=== PATIENT | female | born 1950 | race Caucasian/White ===

== ENCOUNTER 2017-06-07 10:55 | Emergency (ER) | payer OTHER ==
[2017-06-07 11:38] LABS: #Basophils 0.1 thou/uL (0.0-0.2); #Eosinphils 0.1 thou/uL (0.0-0.7); #Lymphocytes 0.8 thou/uL (1.20-3.40); #Monocytes 0.6 thou/uL (0.11-0.59); #Neutrophils 3.3 thou/uL (1.40-6.50); %Basophils 1.7 % (0.0-1.0); %Eosinophils 1.4 % (0.0-10.0); %Monocytes 12.5 % (0.0-10.0); Hematocrit 43.6 % (36.0-47.0); Mean Platelet Volume 7.4 fL (7.4-10.4); Red Blood Cell (RBC) Count 4.94 mill/uL (4.20-5.40); White Blood Cell (WBC) Count 4.8 thou/uL (4.8-10.8)
--- NOTE | 2017-06-07 11:51 | CT ---
BRAIN CT WITHOUT IV CONTRAST: History: 66-year-old female with sinus congestion and dizziness with left sided face tingling. FINDINGS: No focal mass or midline shift. No intra or extraaxial hemorrhage. Sinuses and mastoids are clear. IMPRESSION: No acute intracranial process. No mass or bleed. No evidence for an acute infarction. POS: [facility]
[2017-06-07 12:03] LABS: ALT (SGPT) 19 U/L (8-55); AST (SGOT) 19 U/L (5-34); Alkaline Phosphatase 46 U/L (40-150); Anion Gap 13 mmol/L (10-20); BUN (Urea Nitrogen) 15 mg/dL (9.8-20.1); Bilirubin, Total 0.4 mg/dL (0.2-1.2); CK (CPK) 74 U/L (29-168); Calc. Creatinine Clearance 0 mL/min (70-130); Calcium 9.7 mg/dL (7.8-10.44); Carbon Dioxide 26 mmol/L (23-31); Chloride 104 mmol/L (98-107); Estimated GFR-MDRD 87; Globulin 2.9 g/dL (2.4-3.5); Protein, Total 7.1 g/dL (6.0-8.3); Troponin I Less than 0.010 ng/mL (< 0.028)
--- NOTE | 2017-06-07 12:03 | RAD ---
PORTABLE AP CHEST: Date: 06/07/17 HISTORY: Sinus congestion and sudden onset of dizziness. Left-sided face tingling. COMPARISON: 01/11/17. FINDINGS: Cardiac silhouette and pulmonary vasculature are within normal limits. Lungs are clear. There has be en no interval change from prior study. IMPRESSION: No acute cardiopulmonary process. POS: [facility]
[2017-06-07] MEDS ORDERED: Meclizine HCl 25 MG TAB ONE (13:40)
--- NOTE | 2017-06-18 14:18 | EKG ---
Test Reason : DIZZINESS Blood Pressure : / mmHG Vent. Rate : 069 BPM Atrial Rate : 069 BPM P-R Int : 166 ms QRS Dur : 084 ms QT Int : 410 ms P-R-T Axes : 057 033 049 degrees QTc Int : 439 ms Normal sinus rhythm Septal infarct , age undetermined Abnormal ECG Confirmed by TERRI COLON ([id number]), movie editor YOSELIN MOLINA ([id number]) on 06/18/2017 2:18:12 PM Referred By: Confirmed By:TERRI COLON
== END 2017-06-07 14:52 | disposition home or self-care (01) ==
LOC: ERS 10:55
DX: R42 Dizziness and giddiness (principal); E78.5 Hyperlipidemia, unspecified; G43.909 Migraine, unspecified, not intractable, without status migrainosus; I10 Essential (primary) hypertension
CPT/HCPCS: 70450; 71010; 80053; 82553; 84484; 85025; 87081; 87430; 93005; 94760; 96360

== ENCOUNTER 2017-08-03 02:17 | Inpatient (IN) | payer OTHER ==
[2017-08-03] MEDS ORDERED: Metoclopramide HCl 10 MG/2 ML VIAL ONE (02:45)
[2017-08-03 03:04] LABS: Hemoglobin 13.8 g/dL (12.0-16.0); Mean Corpuscular HGB CONC 34.1 g/dL (32.0-36.0); Mean Corpuscular Hemoglobin 31.2 pg (27.0-31.0); Mean Corpuscular Volume 91.6 fl (81.0-99.0); Mean Platelet Volume 6.9 fL (7.4-10.4); Platelet Count 226 thou/uL (130-400); RBC Distribution Width 12.3 % (11.5-14.5); Red Blood Cell (RBC) Count 4.43 mill/uL (4.20-5.40); White Blood Cell (WBC) Count 14.3 thou/uL (4.8-10.8)
[2017-08-03 03:11] LABS: ALT (SGPT) 16 U/L (8-55); AST (SGOT) 20 U/L (5-34); Albumin 3.9 g/dL (3.4-4.8); Alkaline Phosphatase 36 U/L (40-150); Anion Gap 15 mmol/L (10-20); BUN (Urea Nitrogen) 10 mg/dL (9.8-20.1); Bilirubin, Total 0.9 mg/dL (0.2-1.2); Calc. Creatinine Clearance 0 mL/min (70-130); Calcium 9.6 mg/dL (7.8-10.44); Carbon Dioxide 25 mmol/L (23-31); Chloride 101 mmol/L (98-107); Estimated GFR-MDRD 80; Globulin 3.1 g/dL (2.4-3.5); Glucose 119 mg/dL (80-115); Potassium 4.3 mmol/L (3.5-5.1); Sodium 137 mmol/L (136-145)
[2017-08-03 03:20] LABS: Band 4 % (5-11); Eosinophils 3 % (0-10); Lymphocytes 3 % (21-51); MDiff Complete? YES; Monocytes 1 % (0-10); Neutrophil 89 % (42-75)
[2017-08-03] MEDS ORDERED: diphenhydrAMINE 50 MG/ML VIAL ONE (04:15)
[2017-08-03] MEDS ORDERED: Morphine 2 mg/2ml in 0.9% NaCl PF SYRINGE ONE (04:15)
[2017-08-03 05:36] LABS: Bilirubin Small (Negative); Blood, Urine Small (Negative); Clarity CLOUDY (Clear); Glucose, Urine (Dipstick) Negative (Negative); Leukocyte Large (Negative); Nitrite Negative (Negative); Protein, Urine (Dipstick) Trace mg/dL (Neg-Trace); Specific Gravity, Urine 1.021 (1.002-1.036); Urobilinogen 0.2 mg/dL (0.2-1.0)
[2017-08-03 05:39] LABS: Bacteria/HPF 1+ HPF (None Seen)
[2017-08-03 05:46] LABS: Pathc Cast-AUWi Flag 4.74 (0-2.49)
[2017-08-03 05:56] LABS: Hyaline Casts/LPF NONE SEEN LPF (0-3 Hyaline); Manual Microscopic Reviewed? No Path Casts Seen
[2017-08-03] MEDS ORDERED: Acetaminophen 325 MG TAB PO PRN (06:00)
[2017-08-03] MEDS ORDERED: Sodium Chloride 0.9% 100 ML IVPB SCH (06:00)
[2017-08-03] MEDS ORDERED: Ondansetron HCl/PF 4 MG/2 ML Vial IVP PRN (06:00)
[2017-08-03] MEDS ORDERED: Ondansetron ODT 4 MG TAB SL PRN (06:00)
[2017-08-03] MEDS ORDERED: Piperacillin/Tazobactam 4.5 GM in Sodium Chloride 0.9% 100 ML IVPB SCH (06:45)
[2017-08-03] MEDS ORDERED: Methocarbamol 500 MG TAB PO SCH (06:45)
[2017-08-03] MEDS ORDERED: Acetaminophen 500 MG TAB ONE (07:21)
[2017-08-03] MEDS ORDERED: HYDROcodone/Acetaminophen 5/325 mg Tablet PO PRN (12:47)
[2017-08-03] MEDS ORDERED: Ibuprofen 200 MG TAB PO PRN (12:48)
[2017-08-03] MEDS ORDERED: Acetaminophen 500 MG TAB PO PRN (12:48)
[2017-08-03] MEDS: Piperacillin/Tazobactam 3.375 GM in Sodium Chloride 0.9% 100 ML IVPB SCH ×2 (13:37→20:33)
[2017-08-03] MEDS: Sodium Chloride 0.45% 1,000 ML IV SCH (13:41)
[2017-08-03] MEDS ORDERED: FLU VACC QS 2017 (6-35MOS) 0.25 ML SYRINGE IM ONE (13:45)
[2017-08-03] MEDS ORDERED: FLU VACC QS2017-18 36 mo. & older 0.5 ML SYRINGE IM ONE (13:45)
--- NOTE | 2017-08-03 14:58 | HP ---
DATE OF ADMISSION: 08/03/2017 CHIEF COMPLAINT: Fever, chills, back pain. HISTORY OF PRESENT ILLNESS: This is a 66-year-old female patient of Dr. Alfredo Dong who has had multiple oral antibiotics for the last several months for a urinary tract infection, as she just could not seem to completely fix. She has been on multiple rounds of oral antibiotics, the last one was Levaquin. She came in to the ER, because she became febrile of 102, was very nauseated and felt significant pain in the left side of her back, felt like she had slept on a rock this is what carlos a zamudio said. In the ER, they found her urine did have too numerous to count white cells, current culture was pending. The ER doctor went from past urinary culture and found she had multi-resistant E. coli and start her on Zosyn and admitted for IV treatment with outpatient failure. PAST MEDICAL HISTORY: Positive for hypertension, hyperlipidemia, migraines, insomnia. She has a his tory of left knee degenerative joint disease. PAST SURGICAL HISTORY: An appendectomy, tonsillectomy, and adenoidectomy as a child. She had a hyst erectomy. She had a bladder suspension and then in January of this last year in 2016, she had a left kn ee replacement by Dr. Ch. MEDICATIONS: Losartan/HCT 100/12.5 daily, Crestor 10 mg daily, Ambien 10 mg p.r.n. for insomnia, and sumatriptan 100 mg p.r.n. for migraines. ALLERGIES: She is allergic to SULFA, LEVAQUIN causes rash. She started to feel better since she sto pped the Levaquin. FAMILY HISTORY: Both parents are . Father had a CVA and hypertension. Mom had a cancer of some kind and hypertension. Siblings have hypertension. She has 2 sons with no comorbidities. SOCIAL HISTORY: She is , has two sons. 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 She has no toxic habits. REVIEW OF SYSTEMS: She has had fever, slight headache, some sweats and chills. She has had no cough or chest pain. She has had some nausea, but no emesis. She denies any changes or bowel or bladder habits. She has had no diarrhea or constipation. No melena, no hematochezia. She denies any hematu severo, has had some dysuria and some foul smell in urine. Denies any paresis or paraesthesias. No patti cidal or homicidal ideations. No auditory or visual hallucinations. PHYSICAL EXAMINATION: GENERAL: She is alert, awake, slightly uncomfortable in bed. VITAL SIGNS: Temperature 98.6, pulse 74, respiration 16, O2 sat 98% on room air, blood pressure 142/ 78. HEENT: Reveals normocephalic and atraumatic cranium. Pupils are equal, round, reactive to light and accommodation. Extraocular movements are intact. She does wear glasses. NECK: Supple, no JVD, no bruits, no thyromegaly, no lymphadenopathy. LUNGS: Clear to auscultation bilaterally. No rales, rhonchi, or wheezes. HEART: S1, S2, with no rubs, murmurs, or gallops. ABDOMEN: Soft, nontender, nondistended. No hepatosplenomegaly. BACK: She has left-sided costovertebral angle tenderness to palpation. EXTREMITIES: Show good palpable pulses x4. No clubbing, cyanosis, or edema. SKIN: She has a faint, but noticeable global rash, small round macules about dime jose carlos size. NEUROMUSCULAR: She is alert and oriented x4. Cranial nerves II through XII are equal and symmetrica l. There are no motor or sensory deficits appreciated. All DTRs are 2+. LABORATORY DATA AND X-RAY FINDINGS: White count is 14.3, H&H is 13.8 and 40.6 with 226,000 platelets . Neutrophils 89%, bands at 4%, lymphocytes at 3%. Sodium 137, potassium 4.3, chloride 101, bicarbo mojgan 25. BUN 10, creatinine 0.73. Sugar 119. GFR is 80. AST 20, ALT 16. UA shows too numerous to count white blood cell counts with a large leukocyte esterase, only a small amount of blood, ketones are positive at 80. Her current culture is still pending, culture from 06/18/2017 showed a multi-re sistant E. coli sensitive to Zosyn so that is with the ER started on. ASSESSMENT AND PLAN: Pyelonephritis. We will continue the Zosyn until we get the most recent cultur e and sensitivity results. We will continue her on IV fluids.
[2017-08-03] MEDS: HYDROcodone/Acetaminophen 5/325 mg Tablet PO PRN (18:07)
[2017-08-04] MEDS: Piperacillin/Tazobactam 3.375 GM in Sodium Chloride 0.9% 100 ML IVPB SCH ×4 (00:25→20:34)
[2017-08-04] MEDS: Sodium Chloride 0.45% 1,000 ML IV SCH ×2 (00:26→07:03)
[2017-08-04 04:30] LABS: #Eosinphils 0.6 thou/uL (0.0-0.7); #Lymphocytes 0.9 thou/uL (1.20-3.40); #Monocytes 0.5 thou/uL (0.11-0.59); #Neutrophils 6.2 thou/uL (1.40-6.50); %Basophils 0.2 % (0.0-1.0); %Eosinophils 6.9 % (0.0-10.0); %Lymphocytes 11.2 % (21.0-51.0); %Monocytes 5.8 % (0.0-10.0); %Neutrophils 75.9 % (42.0-75.0); Hemoglobin 11.6 g/dL (12.0-16.0); Mean Corpuscular HGB CONC 33.4 g/dL (32.0-36.0); Mean Corpuscular Hemoglobin 30.6 pg (27.0-31.0); Mean Corpuscular Volume 91.6 fl (81.0-99.0); Platelet Count 205 thou/uL (130-400); RBC Distribution Width 12.3 % (11.5-14.5); Red Blood Cell (RBC) Count 3.78 mill/uL (4.20-5.40); White Blood Cell (WBC) Count 8.2 thou/uL (4.8-10.8)
[2017-08-04 04:44] LABS: Anion Gap 10 mmol/L (10-20); BUN (Urea Nitrogen) 9 mg/dL (9.8-20.1); Calc. Creatinine Clearance 100 mL/min (70-130); Calcium 8.6 mg/dL (7.8-10.44); Carbon Dioxide 24 mmol/L (23-31); Chloride 107 mmol/L (98-107); Estimated GFR-MDRD Greater than 90; Glucose 103 mg/dL (80-115); Potassium 3.2 mmol/L (3.5-5.1); Sodium 138 mmol/L (136-145)
--- NOTE | 2017-08-04 07:28 | PRG ---
DATE OF SERVICE: 08/04/2017 TIME: 7:00 a.m. SUBJECTIVE: The patient is feeling much better this morning after IV hydration. Appetite is good. Left flank pain is much improved. OBJECTIVE: VITAL SIGNS: Temperature 98.6, pulse 84, respirations 16, pulse oximetry 94, blood pressure 133/79. HEART: Regular rate and rhythm. LUNGS: Clear. ABDOMEN: Soft. BACK: Mild left CVA tenderness. LABORATORY DATA: White count 8.2 down from 14.3, H&H is 11 and 34, platelet 205. Sodium 138, potass ium 3.2, creatinine 0.62, blood sugar 103. UA showed 11-20 squamous cells, too numerous to count WBC s. Urine culture negative. Prior urine culture positive for multidrug resistant E. coli sensitive t o piperacillin. ASSESSMENT: 1. Left pyelonephritis with fever, improving. 2. Recurrent urinary tract infection. 3. Hypertension. 4. Hyperlipidemia. 5. Migraines. 6. Left knee degenerative joint disease. PLAN: 1. Continue IV hydration and add potassium. 2. Continue IV piperacillin for another 24 hours. 3. Renal ultrasound today. 4. Possible discharge in a.m.
[2017-08-04] MEDS: Losartan Potassium 25 MG TAB PO SCH (08:16)
[2017-08-04] MEDS: Hydrochlorothiazide 25 MG TAB PO SCH (08:16)
[2017-08-04] MEDS: Loratadine 10 MG TAB PO SCH (08:17)
--- NOTE | 2017-08-04 09:11 | ULT ---
BILATERAL RENAL ULTRASOUND: History: Recurrent urinary tract infection and pyelonephritis. Comparison: None. FINDINGS: The right kidney measures 9.9 x 5.8 x 5.5 cm. Left kidney measures 11.4 x 7.2 x 5.7 cm. No hydronephr osis or abnormal calcifications. The pre void urinary bladder volume is 103 ml. IMPRESSION: 1. No evidence of obstructive uropathy. 2. Trace right pleural effusion. POS: [facility]
[2017-08-04] MEDS: 1/2 NS w/KCL 20 mEq 1,000 ML IV SCH ×2 (10:44→17:21)
[2017-08-04 13:57] VITALS: BMI 26.1
[2017-08-04] MEDS ORDERED: diphenhydrAMINE 25 MG CAP PO PRN (14:09)
[2017-08-04] MEDS: HYDROcodone/Acetaminophen 5/325 mg Tablet PO PRN (20:34)
[2017-08-05] MEDS: 1/2 NS w/KCL 20 mEq 1,000 ML IV SCH ×2 (00:39→07:05)
[2017-08-05] MEDS: Piperacillin/Tazobactam 3.375 GM in Sodium Chloride 0.9% 100 ML IVPB SCH ×2 (02:06→09:06)
[2017-08-05 04:32] LABS: #Eosinphils 0.5 thou/uL (0.0-0.7); #Lymphocytes 1.3 thou/uL (1.20-3.40); #Monocytes 0.4 thou/uL (0.11-0.59); #Neutrophils 2.1 thou/uL (1.40-6.50); %Basophils 0.5 % (0.0-1.0); %Eosinophils 12.5 % (0.0-10.0); %Lymphocytes 28.9 % (21.0-51.0); %Neutrophils 49.1 % (42.0-75.0); Hemoglobin 11.2 g/dL (12.0-16.0); Mean Corpuscular Hemoglobin 31.2 pg (27.0-31.0); Mean Corpuscular Volume 91.7 fl (81.0-99.0); Mean Platelet Volume 7.1 fL (7.4-10.4); Platelet Count 227 thou/uL (130-400); RBC Distribution Width 12.4 % (11.5-14.5); Red Blood Cell (RBC) Count 3.59 mill/uL (4.20-5.40); White Blood Cell (WBC) Count 4.4 thou/uL (4.8-10.8)
[2017-08-05 05:01] LABS: Anion Gap 11 mmol/L (10-20); BUN (Urea Nitrogen) 13 mg/dL (9.8-20.1); Calc. Creatinine Clearance 92 mL/min (70-130); Calcium 8.8 mg/dL (7.8-10.44); Carbon Dioxide 25 mmol/L (23-31); Chloride 111 mmol/L (98-107); Estimated GFR-MDRD 89; Glucose 99 mg/dL (80-115); Potassium 3.7 mmol/L (3.5-5.1); Sodium 143 mmol/L (136-145)
[2017-08-05 07:45] VITALS: BP 149/84; TEMP 97.9
--- NOTE | 2017-08-05 08:28 | DIS ---
DATE OF ADMISSION: 08/03/2017 DATE OF DISCHARGE: 08/05/2017 DISCHARGE DIAGNOSES: 1. Escherichia coli, left pyelonephritis with fever. 2. Recurrent urinary tract infection. 3. Hypertension. 4. Hyperlipidemia. 5. Migraine. 6. Arthritis. BRIEF HISTORY: This is a 66-year-old white female with recurrent UTIs on multiple antibiotics, admit ines with fever. She had temperature of 102 and was very nauseated and presented to the emergency keshia m. She also had left-sided back pain which was quite painful. In the ER, she was noted to have TNTC WBCs and was admitted for failed outpatient therapy. HOSPITAL COURSE: The patient was started on Zosyn IV daily. Her fever resolved. She has done very well. Her back pain has resolved. She has been well hydrated with fluids. She will be discharged o n Augmentin 875 b.i.d. for 1 week. A small pleural effusion was noted on an altered renal ultrasound , so a chest x-ray will be done prior to discharge. Her electrolytes; sodium 143, potassium 3.7, cre atinine 0.67, BUN 13. Her white count went from 14-4.11, H&H of 11 and 32, platelets 227. Renal ult rasound was negative.
[2017-08-05] MEDS: Hydrochlorothiazide 25 MG TAB PO SCH (08:56)
[2017-08-05] MEDS: Loratadine 10 MG TAB PO SCH (08:56)
[2017-08-05] MEDS: Losartan Potassium 25 MG TAB PO SCH (08:58)
--- NOTE | 2017-08-05 09:15 | RAD ---
CHEST TWO VIEWS: HISTORY: Pleural effusion. COMPARISON: Chest one-view 06/07/2017. FINDINGS: There are small bilateral layering pleural effusions which are new. Heart size and cardiac silhouett e are similar. No pneumothorax. No osseous abnormality. IMPRESSION: New small bilateral layering pleural effusions and compressive atelectasis. POS: [facility]
== END 2017-08-05 09:11 | disposition home or self-care (01) | DRG 690 ==
LOC: ERS 02:17 → T4-A 06:20
PROVIDERS: ADMIT Family Medicine; ATTEND Family Medicine
DX: N10 Acute pyelonephritis (principal); B96.20 Unspecified Escherichia coli [E. coli] as the cause of diseases classified elsewhere; I10 Essential (primary) hypertension; E78.5 Hyperlipidemia, unspecified; G43.909 Migraine, unspecified, not intractable, without status migrainosus; M19.90 Unspecified osteoarthritis, unspecified site; Z86.73 Personal history of transient ischemic attack (TIA), and cerebral infarction without residual deficits
CPT/HCPCS: 36415; 71020; 76770; 80048; 80053; 81003; 81015; 83605; 85025; 87040; 87086; 96361; 96365; 96375; J1200; J2270; J2543; J2765; J7050

== ENCOUNTER 2017-08-10 09:22 | Outpatient (CLI) | payer OTHER | END 2017-08-10 09:23 | disposition home or self-care (01) | LOC: BICRAD 09:22 | PROVIDERS: ATTEND Family Medicine | DX: J90 Pleural effusion, not elsewhere classified (principal) | CPT/HCPCS: 71046; 81001; 87086 ==

== ENCOUNTER 2018-03-14 15:39 | Outpatient (CLI) | payer OTHER | END 2018-03-14 15:40 | disposition home or self-care (01) | LOC: BICMAMMO 15:39 | PROVIDERS: ATTEND Internal Medicine Hospice and Palliative Medicine | DX: Z12.31 Encounter for screening mammogram for malignant neoplasm of breast (principal) | CPT/HCPCS: 77063; 77067 ==

== ENCOUNTER 2018-03-21 12:25 | Outpatient (CLI) | payer OTHER ==
--- NOTE | 2018-03-21 14:56 | CT ---
NONCONTRAST ENHANCED CT IMAGES ABDOMEN AND PELVIS: History: Abdominal and pelvic pain. Patient has a history of fever. FINDINGS: Images demonstrate numerous descending and sigmoid colonic diverticula. This is compatible with diver ticulosis. Surrounding inflammatory changes is also seen adjacent to the sigmoid colon. There also appears to be areas of focal sigmoid colonic thickening and fat stranding compatible with diverticulitis in additi on to diverticulosis. There does appear to be some fat stranding extending into the left pelvis adjacent and surrounding th e left retroperitoneum. Some of this inflammatory change also surrounds the left ureter. A small amount of free pelvic fluid is also seen. IMPRESSION: 1. Diverticulosis with findings concerning for diverticulitis. 2. Multilevel lumbar intervertebral disc desiccation also seen. Vacuum disc changes seen at the L4-5 intervertebral disc space. POS: [facility]
== END 2018-03-21 12:26 | disposition home or self-care (01) ==
LOC: CT 12:25
PROVIDERS: ATTEND Internal Medicine Hospice and Palliative Medicine
DX: R10.83 Colic (principal); K57.30 Diverticulosis of large intestine without perforation or abscess without bleeding; M51.86 Other intervertebral disc disorders, lumbar region
CPT/HCPCS: 74176

== ENCOUNTER 2019-03-15 09:29 | Outpatient (CLI) | payer OTHER ==
--- NOTE | 2019-03-15 10:05 | MMO ---
Bilateral MAMMO Bilat Screen [facility]AN[facility]. CLINICAL HISTORY: Patient is 68 years old and is seen for screening. The patient has no family history of breast cancer. The patient has no personal history of cancer. VIEWS: The views performed were: bilateral craniocaudal with tomosynthesis and bilateral mediolateral oblique with tomosynthesis. FILMS COMPARED: The present examination has been compared to a prior imaging study performed at [facility] on 03/14/2018. MAMMOGRAM FINDINGS: There are scattered fibroglandular densities. Finding 1: There are stable benign appearing calcifications seen in both breasts. Finding 2: There are stable nodules seen in both breasts. There are no suspicious masses, suspicious calcifications, or new areas of architectural distortion. IMPRESSION: THERE IS NO MAMMOGRAPHIC EVIDENCE OF MALIGNANCY. A ROUTINE FOLLOW-UP MAMMOGRAM IN 1 YEAR IS RECOMMENDED. THE RESULTS OF THIS EXAM WERE SENT TO THE PATIENT. ACR BI-RADS Category 2 - Benign finding MAMMOGRAPHY NOTE: 1. A negative mammogram report should not delay a biopsy if a dominant of clinically suspicious mass is present. 2. Approximately 10% to 15% of breast cancers are not detected by mammography. 3. Adenosis and dense breasts may obscure an underlying neoplasm. Reported by: SHAZIA HU MD Electonically Signed: [id number]
== END 2019-03-15 09:30 | disposition home or self-care (01) ==
LOC: BICMAMMO 09:29
PROVIDERS: ATTEND Internal Medicine Hospice and Palliative Medicine
DX: Z12.31 Encounter for screening mammogram for malignant neoplasm of breast (principal)
CPT/HCPCS: 77063; 77067

== ENCOUNTER 2019-05-01 17:48 | Inpatient (IN) | payer OTHER, MEDICARE ==
[~2019-05-01 17:48] MED LIST: ISOVUE-370 76%-LOCM 1 ML ONE
[2019-05-01 18:05] VITALS: BMI 27.4
[2019-05-01] MEDS ORDERED: Famotidine 20 MG TAB PO PRN (20:31)
[2019-05-01] MEDS ORDERED: Ondansetron ODT 4 MG TAB PO PRN (20:31)
[2019-05-01] MEDS ORDERED: Acetaminophen 325 MG TAB PO PRN (20:31)
[2019-05-01] MEDS ORDERED: Senokot S 8.6-50 MG TAB PO PRN (20:31)
--- NOTE | 2019-05-01 20:44 | PDOC.FPRHP ---
- History of Present Illness Chief Complaint: diverticulitis, failed outpt tx History of Present Illness: Patient is a 68F with PMHx of HTN, HLD, chronic UTI, chronic lower back pain presenting with diverticulitis s/p failing outpatient treatment. Patient reports that approximately 23 days ago she had been started on a 10 day course of Augmentin for diverticulitis, outpatient. She reported that she improved and was off of the antibiotics for about 10 days before pain in her LLQ began this past Tuesday. She reports that the pain worsened on Tuesday and she started to take Augmentin again. She reports that her pain continued to worsen so she was sent here as a direct admit by Dr. Davis. She endorses some nausea at times, but denies emesis or diarrhea. She reports that she has been constipated, with her last BM being this morning, though she reports it was difficult to pass. She also reports that it is painful when she is sitting up right. - Allergies/Adverse Reactions Allergies Allergy/AdvReac Type Severity Reaction Status Date / Time nitrofurantoin Allergy Intermediate Rash Verified 08/03/17 18:46 [From Macrodantin] sulfamethoxazole Allergy Intermediate Rash Verified 05/01/19 20:45 [From Bactrim] trimethoprim [From Bactrim] Allergy Intermediate Rash Verified 05/01/19 20:45 Sulfa (Sulfonamide Allergy Verified 08/03/17 11:41 Antibiotics) - Home Medications Medication Instructions Recorded Confirmed Type Ibuprofen 2 tab PO Q4H PRN 01/11/17 05/01/19 History Losartan/Hydrochlorothiazide 1 tab PO DAILY 01/11/17 05/01/19 History [Losartan-Hctz 100-12.5 mg Tab] Rosuvastatin [Crestor] 1 tab PO DAILY 01/11/17 05/01/19 History SUMAtriptan Succinate 1 tab PO DAILY PRN 01/11/17 05/01/19 History diphenhydrAMINE [Benadryl] 1 tab PO Q6H PRN 01/11/17 05/01/19 History traMADol HCl [Ultram] 1 - 2 tablet PO Q6HR PRN 01/20/17 05/01/19 History Amoxicillin/Potassium Clav 1 each PO BID #14 tablet 08/05/17 05/01/19 Rx [Augmentin 875-125 Tablet] Zolpidem Tartrate [Ambien] 1 tab PO HS PRN 05/01/19 05/01/19 History - History PMHx: HTN, HLD, chronic UTI, chronic lower back pain PSHx: partial hysterectomy, tonsillectomy, appendectomy FHx: mother- bladder cancer Social: denies etoh, drugs, smoking - Vital signs BP: [145/91] HR: [77] RR: [18] Tmax: [99.6] Pox: [98]% on [RA] Wt: [72.5kg] - Physical Exam Constitutional: NAD, awake, alert and oriented HEENT: EOMI, no scleral icterus, grossly normal vision Neck: supple, trachea midline Chest: no-tender to palpation, no lesions Heart: RRR, normal S1/S2 Lungs: CTAB, no respiratory distress, good air movement Abdomen: bowel sounds present, other (ttp lower abdomen, some guarding, rebound tenderness llq) Musculoskeletal: normal structure, normal tone Neurological: no focal deficit, normal sensation Skin: no rash/lesions, good turgor Heme/Lymphatic: no unusual bruising or bleeding, no purpura Psychiatric: normal mood and affect, good judgment and insight FMR H&P: Results - Labs Result Diagrams: 05/01/19 20:51 05/01/19 20:51 FMR H&P: A/P - Problem List (1) Diverticulitis Current Visit: Yes Status: Acute Code(s): K57.92 - DVTRCLI OF INTEST, PART UNSP, W/O PERF OR ABSCESS W/O BLEED (2) HTN (hypertension) Current Visit: Yes Status: Chronic Code(s): I10 - ESSENTIAL (PRIMARY) HYPERTENSION (3) HLD (hyperlipidemia) Current Visit: Yes Status: Chronic Code(s): E78.5 - HYPERLIPIDEMIA, UNSPECIFIED - Plan Patient is a 68F with PMHx of HTN, HLD, low back pain, chronic UTI, admitted for diverticulitis that failed outpatient tx #Diverticulitis, failed outpatient tx -patient currently afebrile -NPO for bowel rest -IVF -Abdominal CT to assess for abscess -Flagyl + Cipro, will continue to reassess and adjust accordingly #HTN -continue home meds: HCTZ/lostartan #HLD -continue home meds: crestor DVT ppx: SCDs Diet: NPO Code: Full Dispo: Inpatient for IV abx tx of diverticulitis, f/u abdominal CT FMR H&P: Upper Level - Pertinent history 68 yo F here as direct admit from clinic for failed outpatient tx of diverticulitis. She was initially treated at the beginning of April with augmentin for 10 days. Over the past 2-3 days she noted return of LLQ pain that gradually worsened and had associated nausea. She denies constipation, diarrhea , or blood in stool. See international trade manager portion of note for full ROS, PE, vitals, and labs - Pertinent findings ROS General: denies fever, chills CV: denies CP Resp: denies SOB Abd: complains of LLQ and RLQ pain. Denies diarrhea or blood stool : denies frequency or dysuria PE: General A&O x4, NAD HEENT NCAT CV RRR no murmur Resp CTA b/l Abd Suprapubic and LLQ TTP worse on rebound - Plan Date/Time: 05/01/192038 I, Nick Maddox DO, have evaluated this patient and agree with findings/plan as outlined by international trade manager resident. Pertinent changes/additions are listed here. 1. Acute diverticulitis - start IV cipro/flagyl - IVF - Clear liquid diet, advance as tolerated - CT abd/pelv w/wo contrast to r/o abscess - IV pain control 2. HLD - home meds 3. HTN - home meds PPx SCD Diet clear liquid Code Full Dispo: pt is overall stable and has good prognosis. Would expect hospital stay of greater than 48 hours. Addendum - Attending - Attending Attestation Date/Time: 05/02/19 [id number] I personally evaluated the patient and discussed the management with Dr. Maddox and Jared. I agree with the History, Examination, Assessment and Plan documented above with any addition or exceptions noted below. Patient with localized guarding and TTP in LLQ, soft and NTTP otherwise. Cipro/ flagyl and await imaging. NPO pending results.
[2019-05-01] MEDS ORDERED: SUMAtriptan Succinate 50 MG TAB PO PRN (20:46)
[2019-05-01 21:05] LABS: #Eosinphils 0.2 thou/uL (0.0-0.7); #Lymphocytes 1.5 thou/uL (1.20-3.40); #Monocytes 0.8 thou/uL (0.11-0.59); #Neutrophils 5.8 thou/uL (1.40-6.50); %Basophils 0.2 % (0.0-1.0); %Eosinophils 1.9 % (0.0-10.0); %Monocytes 9.6 % (0.0-10.0); %Neutrophils 70.4 % (42.0-75.0); Hemoglobin 13.4 g/dL (12.0-16.0); Mean Corpuscular HGB CONC 34.7 g/dL (32.0-36.0); Mean Corpuscular Hemoglobin 30.6 pg (27.0-31.0); Mean Corpuscular Volume 88.2 fL (78.0-98.0); Mean Platelet Volume 7.2 fL (7.4-10.4); Platelet Count 247 thou/uL (130-400); RBC Distribution Width 11.9 % (11.5-14.5); Red Blood Cell (RBC) Count 4.37 mill/uL (4.20-5.40); White Blood Cell (WBC) Count 8.3 thou/uL (4.8-10.8)
[2019-05-01] MEDS: Morphine 2 MG/ML SYRINGE SLOW IVP PRN (21:17)
[2019-05-01 21:25] LABS: ALT (SGPT) 10 U/L (8-55); AST (SGOT) 11 U/L (5-34); Albumin 3.9 g/dL (3.4-4.8); Alkaline Phosphatase 37 U/L (40-110); Anion Gap 11 mmol/L (10-20); BUN (Urea Nitrogen) 6 mg/dL (9.8-20.1); Bilirubin, Total 0.8 mg/dL (0.2-1.2); Calc. Creatinine Clearance 93 mL/min (70-130); Calcium 9.2 mg/dL (7.8-10.44); Carbon Dioxide 26 mmol/L (23-31); Chloride 102 mmol/L (98-107); Estimated GFR-MDRD 87; Globulin 2.6 g/dL (2.4-3.5); Glucose 85 mg/dL (80-115); Lipase 17 U/L (8-78); Potassium 3.3 mmol/L (3.5-5.1); Protein, Total 6.5 g/dL (6.0-8.3); Sodium 136 mmol/L (136-145)
[2019-05-01] MEDS: Lactated Ringer's 1,000 ML IV SCH (21:27)
[2019-05-01] MEDS ORDERED: Piperacillin/Tazobactam 4.5 GM in Sodium Chloride 0.9% 100 ML IVPB SCH (21:30)
[2019-05-01] MEDS ORDERED: Ondansetron PF 4 MG/2 ML Vial IVP PRN (21:30)
[2019-05-01] MEDS ORDERED: metroNIDAZOLE 500 MG in Premix Bag 1 BAG IVPB SCH (22:00)
[2019-05-01] MEDS: Zolpidem Tartrate 5 MG TAB PO PRN (23:10)
--- NOTE | 2019-05-01 23:15 | CT ---
EXAM: CT ABDOMEN AND PELVIS HISTORY: Diverticulitis COMPARISON: None. Procedure: Multiple contiguous axial images were obtained and a CT of the abdomen and pelvis with IV contrast. C oronal reformats were performed. FINDINGS: Lower Chest: within normal limits. Vessels: Normal caliber aorta Heart: Normal heart size Abdomen: Portal vein:Patent Gallbladder: No calcified gallstones. Normal caliber wall. Liver: within normal limits. Pancreas: within normal limits. Spleen: within normal limits. Adrenals: within normal limits. Kidneys: Symmetric enhancement. Bilaterally no obstructive uropathy Peritoneum: No ascites or free air, no fluid collection. Bowel: Gastric mucosa and duodenum are unremarkable. Multiple normal caliber small bowel loops. Unrem arkable ileocecal junction. Appendix is not appreciated. No inflammation of the cecal apex. Scattered fecal material in a nondistended, nondilated right hemicolon, transverse colon, proximal to mid ascending colon. In the distal descending colon and sigmoid colon, there is long segment bowel wall thickening and pericolonic fat stranding compatible with diverticulitis. No abscess or perforati on. Mesentery and Retroperitoneum: Slightly prominent right lower quadrant mesenteric lymph nodes are not ed. Abdominal Wall: within normal limits. Pelvis: Reproductive Organs: Surgically absent uterus. Pelvis: There is abnormal soft tissue attenuation fluid in the left hemipelvis, likely secondary to a djacent diverticulitis. No evidence of abscess. Bladder: within normal limits. Bones: within normal limits. IMPRESSION: Sigmoid colon diverticulitis with adjacent inflammatory/reactive changes in the left hemipelvis. No e vidence of abscess or perforation. Transcribed Date/Time: 05/01/2019 11:18 PM
[2019-05-02] MEDS: metroNIDAZOLE 500 MG in Premix Bag 1 BAG IVPB SCH ×3 (01:16→17:47)
[2019-05-02] MEDS ORDERED: Piperacillin/Tazobactam 3.375 GM in Sodium Chloride 0.9% 100 ML IVPB SCH (06:00)
--- NOTE | 2019-05-02 06:02 | PDOC.FM ---
- Subjective Subjective: Pt states this is her secong episode of diverticulitis. One ocurred about 1 year ago, the second starting about 1 month ago. Pt states she is much more comfortable this morning, but still in pain in her lower abdomen. Denies V/D. Had normal, non-bloody BM this morning. C/o blood in urine, no dysuria. States she has has hematuria in the past and urology performed cystoscopy without any findings. They suspected a stone. - Objective Vital Signs & Weight: Vital Signs (12 hours) Temp Pulse Resp BP BP Pulse Ox 05/02/19 04:00 98.7 F 75 18 134/85 93 L 05/01/19 23:42 98.3 F 71 18 152/86 H 97 05/01/19 20:00 98.9 F 72 18 160/85 H 99 Weight Weight 72.575 kg Result Diagrams: 05/01/19 20:51 05/01/19 20:51 Radiology Reviewed by me: Yes (Ct abd: sigmoid diverticulitis without perforation or abscess. ) Phys Exam - Physical Examination Constitutional: NAD HEENT: PERRLA, moist MMs, sclera anicteric Neck: no nodes, no JVD, supple, full ROM Respiratory: no wheezing, no rales, no rhonchi, clear to auscultation bilateral Cardiovascular: RRR, no significant murmur, no rub Gastrointestinal: soft, no distention, positive bowel sounds Tenderness with light palpation over lower abdomen on right and left. + guarding Musculoskeletal: no edema, pulses present Neurological: non-focal, normal sensation, moves all 4 limbs Psychiatric: normal affect, A&O x 3 Skin: no rash, normal turgor, cap refill <2 seconds Dx/Plan (1) Diverticulitis Code(s): K57.92 - DVTRCLI OF INTEST, PART UNSP, W/O PERF OR ABSCESS W/O BLEED Status: Acute (2) HLD (hyperlipidemia) Code(s): E78.5 - HYPERLIPIDEMIA, UNSPECIFIED Status: Chronic (3) HTN (hypertension) Code(s): I10 - ESSENTIAL (PRIMARY) HYPERTENSION Status: Chronic (4) Hypokalemia Code(s): E87.6 - HYPOKALEMIA Status: Acute - Plan Plan: Patient is a 68F with PMHx of HTN, HLD, low back pain, chronic UTI, admitted for diverticulitis that failed outpatient tx 1. Acute Uncomplicated Diverticulitis -failed outpatient augmentin tx -patient currently afebrile -NPO for bowel rest, advance diet as tolerated. -IVF -Abdominal CT: sigmoid diverticulitis. No abscess or perforation -Metronidazole 500 mg Q8H and Cipro 400 mg Q12H IV antibiotic therapy 2. HTN -continue home meds: HCTZ/lostartan 3. HLD -continue home meds: crestor 4. Hypokalemia - K 3.3 - Replaced with KCl IVPB 20 mEq/200mL - will reevaluate BMP DVT ppx: SCDs Diet: NPO Code: Full Dispo: Stable, Inpatient for IV abx tx of diverticulitis Addendum - Attending - Attending Attestation Date/Time: 05/02/19 [id number] I personally evaluated the patient and discussed the management with Dr. Murray. I agree with the History, Examination, Assessment and Plan documented above with any addition or exceptions noted below. Patient here for diverticulitis failed outpatient treatment. She has no perforation of abscess. Continue IV abx, pain control, IV fluids and bowel rest.
[2019-05-02] MEDS ORDERED: Potassium Chloride 20 MEQ TAB PO SCH (07:00)
[2019-05-02] MEDS ORDERED: Potassium Chloride 20 MEQ/100 ML PREMIX BAG IVPB SCH (07:15)
[2019-05-02] MEDS: Losartan 25 MG TAB PO SCH (08:15)
[2019-05-02] MEDS: Rosuvastatin 10 MG TAB PO SCH (08:15)
[2019-05-02] MEDS: Hydrochlorothiazide 25 MG TAB PO SCH (08:15)
[2019-05-02] MEDS: Morphine 2 MG/ML SYRINGE SLOW IVP PRN ×3 (08:21→22:01)
[2019-05-02] MEDS: Lactated Ringer's 1,000 ML IV SCH ×3 (08:24→22:01)
[2019-05-02] MEDS ORDERED: Non-Formulary Item 1 EACH (Losartan/Hydrochlorothiazide [Losartan-Hctz 100-12.5 Mg Tab] 1 PO SCH (09:00)
[2019-05-02] MEDS: cefTRIAXone\\ROCEPHIN 2 GM in Sodium Chloride 0.9% 100 ML IVPB SCH (10:08)
--- NOTE | 2019-05-02 15:32 | RAD ---
2 views chest: 05/02/2019 COMPARISON: 08/05/2017 HISTORY: Atherosclerotic heart disease FINDINGS: Lungs are clear. Heart and mediastinal contours are unremarkable. No acute osseous or alveo lar. IMPRESSION: No acute findings.
[2019-05-02] MEDS ORDERED: Prevnar 13-Val Conj/PF 0.5 ML SYRINGE IM ONE (18:30)
[2019-05-02] MEDS: Zolpidem Tartrate 5 MG TAB PO PRN (22:30)
[2019-05-03] MEDS: metroNIDAZOLE 500 MG in Premix Bag 1 BAG IVPB SCH ×3 (01:36→17:11)
[2019-05-03] MEDS: Lactated Ringer's 1,000 ML IV SCH ×2 (05:10→12:43)
--- NOTE | 2019-05-03 06:13 | PDOC.FM ---
- Subjective Subjective: Pt states she has developed Diarrhea since last night that is very watery in nature, occurring every time she urinates, uncontrollably. She states she has slight fecal incontinence with fecal material being evident on a pad when she woke up. States her pain is 4/10 in lower abdomen, improving from yesterday. Pt has an appetite and requesting advancing her diet. tolerated clear liquid diet well yesterday. - Objective MAR Reviewed: Yes Vital Signs & Weight: Vital Signs (12 hours) Temp Pulse Resp BP Pulse Ox 05/02/19 20:00 98.2 F 70 18 151/79 H 100 Weight Admit Weight 72.575 kg Weight 72.575 kg I&O: 05/01/19 05/02/19 05/03/19 06:59 06:59 06:59 Intake Total 1620 600 Balance 1620 600 Result Diagrams: 05/03/19 06:35 05/03/19 06:35 Phys Exam - Physical Examination Constitutional: NAD HEENT: PERRLA, moist MMs, sclera anicteric Neck: no nodes, no JVD, supple, full ROM Respiratory: no wheezing, no rales, no rhonchi, clear to auscultation bilateral Cardiovascular: RRR, no significant murmur, no rub Gastrointestinal: soft, no distention, positive bowel sounds Tenderness over lower abdomen to ligt palpation. Musculoskeletal: no edema, pulses present Neurological: non-focal, normal sensation, moves all 4 limbs Psychiatric: normal affect, A&O x 3 Skin: normal turgor, cap refill <2 seconds Deviation from normal: Left cheek erythematous 1 cm macular rash. Dx/Plan (1) Diverticulitis Code(s): K57.92 - DVTRCLI OF INTEST, PART UNSP, W/O PERF OR ABSCESS W/O BLEED Status: Acute (2) HLD (hyperlipidemia) Code(s): E78.5 - HYPERLIPIDEMIA, UNSPECIFIED Status: Chronic (3) HTN (hypertension) Code(s): I10 - ESSENTIAL (PRIMARY) HYPERTENSION Status: Chronic (4) Hypokalemia Code(s): E87.6 - HYPOKALEMIA Status: Acute - Plan Plan: Patient is a 68F with PMHx of HTN, HLD, low back pain, chronic UTI, admitted for diverticulitis that failed outpatient tx 1. Acute Uncomplicated Diverticulitis -failed outpatient augmentin tx -patient currently afebrile -Clear diet, advance diet as tolerated after adequate bowel rest. -IVF -Abdominal CT: sigmoid diverticulitis. No abscess or perforation -Metronidazole 500 mg Q8H and Rocephin 2 G Q24H 2. HTN -continue home meds: HCTZ/lostartan 3. HLD -continue home meds: crestor 4. Hypokalemia, improved - K 3.3 --> 3.5 on 05/03 - Replaced with KCl IVPB 20 mEq/200mL 5. Diarrhea - Most likely caused from antibiotic use. - Ordered C. Diff assay, with history of outpatient and inpatient antibiotic therapy. - Started probiotic therapy DVT ppx: SCDs Diet: Clear liquids Code: Full Dispo: Stable, Inpatient for IV abx, IVF, bowel rest tx of diverticulitis Addendum - Attending - Attending Attestation Date/Time: 05/03/19 1121 I personally evaluated the patient and discussed the management with Dr. Murray. I agree with the History, Examination, Assessment and Plan documented above with any addition or exceptions noted below. Patient feeling improved. She has begun having watery diarrhea, Cdiff screen pending, though this is likely from her diverticulitis. She is tolerating PO well. Reassess this PM and possible discharge pending further lab workup.
[2019-05-03 06:52] LABS: #Eosinphils 0.2 thou/uL (0.0-0.7); #Lymphocytes 0.9 thou/uL (1.20-3.40); #Monocytes 0.5 thou/uL (0.11-0.59); #Neutrophils 3.5 thou/uL (1.40-6.50); %Basophils 0.4 % (0.0-1.0); %Eosinophils 3.9 % (0.0-10.0); %Lymphocytes 17.4 % (21.0-51.0); %Monocytes 9.6 % (0.0-10.0); %Neutrophils 68.8 % (42.0-75.0); Hemoglobin 12.5 g/dL (12.0-16.0); Mean Corpuscular HGB CONC 35.2 g/dL (32.0-36.0); Mean Corpuscular Hemoglobin 30.7 pg (27.0-31.0); Mean Corpuscular Volume 87.2 fL (78.0-98.0); Mean Platelet Volume 7.3 fL (7.4-10.4); Platelet Count 229 thou/uL (130-400); RBC Distribution Width 11.7 % (11.5-14.5); Red Blood Cell (RBC) Count 4.06 mill/uL (4.20-5.40); White Blood Cell (WBC) Count 5.1 thou/uL (4.8-10.8)
[2019-05-03 07:08] LABS: ALT (SGPT) 8 U/L (8-55); AST (SGOT) 9 U/L (5-34); Albumin 3.2 g/dL (3.4-4.8); Alkaline Phosphatase 31 U/L (40-110); Anion Gap 9 mmol/L (10-20); BUN (Urea Nitrogen) 6 mg/dL (9.8-20.1); Bilirubin, Total 0.4 mg/dL (0.2-1.2); Calc. Creatinine Clearance 106 mL/min (70-130); Calcium 8.5 mg/dL (7.8-10.44); Carbon Dioxide 26 mmol/L (23-31); Chloride 107 mmol/L (98-107); Estimated GFR-MDRD Greater than 90; Globulin 2.3 g/dL (2.4-3.5); Glucose 90 mg/dL (80-115); Potassium 3.5 mmol/L (3.5-5.1); Protein, Total 5.5 g/dL (6.0-8.3); Sodium 138 mmol/L (136-145)
[2019-05-03] MEDS: Hydrochlorothiazide 25 MG TAB PO SCH (08:34)
[2019-05-03] MEDS: Losartan 25 MG TAB PO SCH (08:34)
[2019-05-03] MEDS: Rosuvastatin 10 MG TAB PO SCH (08:35)
[2019-05-03] MEDS: cefTRIAXone\\ROCEPHIN 2 GM in Sodium Chloride 0.9% 100 ML IVPB SCH (08:35)
[2019-05-03] MEDS ORDERED: Floranex Packet PO SCH (09:00)
[2019-05-03] MEDS ORDERED: Dicyclomine 10 MG CAP PO PRN (10:08)
[2019-05-03 18:44] VITALS: BP 147/91; TEMP 98.2
== END 2019-05-03 18:45 | disposition home or self-care (01) | DRG 392 ==
LOC: T4-A 17:48
PROVIDERS: ADMIT Family Medicine; ATTEND Family Medicine
DX: K57.32 Diverticulitis of large intestine without perforation or abscess without bleeding (principal); I10 Essential (primary) hypertension; E78.5 Hyperlipidemia, unspecified; E87.6 Hypokalemia; T36.95XA Adverse effect of unspecified systemic antibiotic, initial encounter; G89.29 Other chronic pain; R15.9 Full incontinence of feces; Z87.440 Personal history of urinary (tract) infections; Z90.710 Acquired absence of both cervix and uterus; Z90.49 Acquired absence of other specified parts of digestive tract
CPT/HCPCS: 36415; 71046; 74177; 80053; 83690; 85025; 87324; 87449; 93005; 93010; J0696; J0744; J2270; J2405; J2543; J3480; J3490; Q9966

== ENCOUNTER 2019-10-05 07:30 | Outpatient (CLI) | payer OTHER ==
[2019-10-05 16:14] LABS: #Eosinphils 0.4 thou/uL (0.0-0.7); #Lymphocytes 1.9 thou/uL (1.20-3.40); #Monocytes 0.6 thou/uL (0.11-0.59); #Neutrophils 3.9 thou/uL (1.40-6.50); %Basophils 0.4 % (0.0-1.0); %Eosinophils 6.4 % (0.0-10.0); %Lymphocytes 27.7 % (21.0-51.0); %Monocytes 8.2 % (0.0-10.0); %Neutrophils 57.3 % (42.0-75.0); Hemoglobin 14.4 g/dL (12.0-16.0); Mean Corpuscular HGB CONC 34.7 g/dL (32.0-36.0); Mean Corpuscular Hemoglobin 30.8 pg (27.0-31.0); Mean Corpuscular Volume 88.6 fL (78.0-98.0); Mean Platelet Volume 7.5 fL (7.4-10.4); Platelet Count 262 thou/uL (130-400); Red Blood Cell (RBC) Count 4.67 mill/uL (4.20-5.40); White Blood Cell (WBC) Count 6.8 thou/uL (4.8-10.8)
[2019-10-05 16:19] LABS: Bacteria/HPF None Seen HPF (None Seen); Bilirubin Negative (Negative); Blood, Urine Negative (Negative); Clarity Clear (Clear); Glucose, Urine (Dipstick) Normal (Negative); Leukocyte Negative Leu/uL (Negative); Nitrite Negative (Negative); Protein, Urine (Dipstick) Negative (Neg-Trace); RBC/HPF 0-3 HPF (0-3); Squamous Epithelial 0-3 HPF (0-3); Urobilinogen Normal mg/dL (Less than 2); WBC/HPF 0-3 HPF (0-3)
[2019-10-05 16:36] LABS: Anion Gap 12 mmol/L (10-20); BUN (Urea Nitrogen) 11 mg/dL (9.8-20.1); Calc. Creatinine Clearance 0 mL/min (70-130); Calcium 9.2 mg/dL (7.8-10.44); Carbon Dioxide 26 mmol/L (23-31); Chloride 103 mmol/L (98-107); Estimated GFR-MDRD 79; Glucose 86 mg/dL (80-115); Potassium 3.4 mmol/L (3.5-5.1); Sodium 138 mmol/L (136-145)
--- NOTE | 2019-10-08 16:57 | EKG ---
Test Reason : Blood Pressure : / mmHG Vent. Rate : 057 BPM Atrial Rate : 057 BPM P-R Int : 184 ms QRS Dur : 090 ms QT Int : 426 ms P-R-T Axes : 066 061 057 degrees QTc Int : 414 ms Sinus bradycardia Septal infarct , age undetermined Abnormal ECG When compared with ECG of 02-MAY-2019 03:30, No significant change was found Confirmed by DR. Jose R MOTA ([id number]) on 10/08/2019 4:56:58 PM Referred By: HAYLEY Confirmed By:DR. Jose R MOTA
== END 2019-10-05 07:31 | disposition home or self-care (01) ==
LOC: LABBT 07:30
PROVIDERS: ATTEND Orthopaedic Surgery Hand Surgery
DX: Z01.818 Encounter for other preprocedural examination (principal); M67.431 Ganglion, right wrist; M18.11 Unilateral primary osteoarthritis of first carpometacarpal joint, right hand
CPT/HCPCS: 80048; 81001; 85025; 93005; 93010

== ENCOUNTER 2019-10-09 05:47 | Observation (INO) | payer OTHER ==
[2019-10-09] MEDS ORDERED: Betamet Acet/Betamet Na Ph 30 MG/5 ML VIAL ONE (06:20)
[2019-10-09] MEDS ORDERED: Bupivacaine PF 0.5% 30 ML VIAL ONE (06:20)
[2019-10-09] MEDS ORDERED: Bacitracin Zinc Ointment 30 gm TUBE ONE (06:20)
[2019-10-09] MEDS ORDERED: Midazolam HCl 2 mg/2 ml Vial ONE (06:47)
[2019-10-09] MEDS ORDERED: Fentanyl 100 MCG/2 ML VIAL ONE ×2 (06:48→11:08)
--- NOTE | 2019-10-09 10:45 | RAD ---
6 FLUOROSCOPIC SPOT IMAGES OF RIGHT WRIST: INDICATION: Right wrist excision of ganglion cyst. FINDINGS: Submitted images demonstrate K wire fixation of the trapezium as well as the thumb MCP joint. Final s ubsequent image demonstrates a trapeziectomy with probable interarticular tendon interposition of the first CMC joint. K wire fixation is now seen on the final image through the thumb metacarpal bone to the index finger metacarpal. There is persistent K wire that fixates the thumb MCP joint. There are vascular clips seen within the volar radial soft tissues of the distal right forearm. The total f luoroscopic time was 32 seconds. Total exposure was 0.38 mGy. IMPRESSION: Intraoperative fluoroscopy for first CMC arthroplasty and MCP fixation. Transcribed Date/Time: 10/09/2019 11:07 AM
[2019-10-09] MEDS ORDERED: Ondansetron PF 4 MG/2 ML Vial ONE ×2 (10:58→11:15)
[2019-10-09] MEDS ORDERED: traMADol HCl 50 MG TAB PO PRN (10:58)
[2019-10-09] MEDS ORDERED: Acetaminophen 325 MG TAB PO PRN (10:58)
[2019-10-09] MEDS ORDERED: Fentanyl 100 MCG/2 ML VIAL SLOW IVP PRN (10:58)
[2019-10-09] MEDS ORDERED: Morphine 4 MG/ML VIAL SLOW IVP PRN (10:58)
[2019-10-09] MEDS ORDERED: TETANUS AND DIPHTHERIA TOX/PF 0.5 ML DISP.SYRIN IM SCH (11:00)
[2019-10-09] MEDS ORDERED: Communication Order-Pharmacy FS SCH (11:00)
[2019-10-09] MEDS ORDERED: Meperidine HCl/PF 25 MG/ML VIAL IM PRN (11:03)
[2019-10-09] MEDS ORDERED: Promethazine HCl 25 MG/ML VIAL ONE (11:09)
[2019-10-09] MEDS ORDERED: PROPOFOL 200 MG/20 ML VIAL ONE (11:15)
[2019-10-09] MEDS ORDERED: Bupivacaine HCl 0.5%/Epinephrine 1:200,000/PF 30 ml Vial ONE (11:15)
[2019-10-09] MEDS ORDERED: Lidocaine 1% PF 5 ML VIAL ONE (11:15)
[2019-10-09] MEDS ORDERED: Dexamethasone 20 MG/5 ML VIAL ONE (11:15)
[2019-10-09] MEDS ORDERED: Acetaminophen 325 MG TAB ONE (17:21)
[2019-10-09 18:06] VITALS: BMI 27.3
[2019-10-09] MEDS ORDERED: diphenhydrAMINE 25 MG CAP PO PRN (20:57)
[2019-10-09] MEDS ORDERED: Atorvastatin Calcium 20 MG TAB PO SCH ×2 (21:00)
[2019-10-09] MEDS ORDERED: Losartan 25 MG TAB PO SCH (21:00)
[2019-10-09] MEDS ORDERED: Ondansetron ODT 4 MG TAB PO PRN (21:01)
[2019-10-09] MEDS ORDERED: Zolpidem Tartrate 5 MG TAB PO PRN ×2 (21:02→21:04)
[2019-10-09] MEDS ORDERED: SUMAtriptan Succinate 50 MG TAB PO PRN (21:02)
[2019-10-09] MEDS ORDERED: Hydrochlorothiazide 25 MG TAB PO SCH (21:15)
[2019-10-09] MEDS: Vancomycin HCl 1 GM in Premix Bag 1 BAG IVPB SCH (21:41)
[2019-10-09] MEDS: Aspirin 81 mg Enteric Coated Tablet PO SCH (21:42)
[2019-10-10] MEDS: Sodium Chloride 0.9% 100 ML IV SCH ×5 (00:12→00:16)
[2019-10-10] MEDS: Sodium Chloride 0.9% 1,000 ML IV SCH ×2 (01:41→09:09)
[2019-10-10] MEDS: HYDROcodone/Acetaminophen 5/325 mg Tablet PO PRN ×2 (05:53→11:38)
[2019-10-10] MEDS: Ibuprofen 200 MG TAB PO PRN ×2 (05:54→11:37)
[2019-10-10 07:14] VITALS: BP 145/82; TEMP 98.2
--- NOTE | 2019-10-10 08:21 | OP ---
DATE OF PROCEDURE: 10/09/2019 PREOPERATIVE DIAGNOSES: 1. Right thumb carpometacarpal osteoarthritis. 2. Right thumb volar capsular laxity. 3. Right wrist ganglion. FINDINGS: 1. Severe osteoarthritis of right thumb carpometacarpal joint (80% trapezial erosion and 60% thumb metacarpal base erosion with osteophytes on both sides of the joint, especially the thumb metacarpal). 2. 1.5 cm volar ganglion. 3. Marked laxity even under anesthesia, MP joint palmar aspect. PROCEDURES PERFORMED: 1. C-arm supervision 1 hour. 2. Right wrist volar ganglion excision with arthrotomy. 3. Right thumb metacarpophalangeal joint capsulodesis with pinning under C-arm of the metacarpophalangeal joint. 4. Right thumb LRTI (ligament replacement and tendon interposition), carpometacarpal joint arthroplasty. 5. Thumb complete trapeziectomy/removal of carpal bone of the scaphoid. TOURNIQUET TIME: 2 hours and 5 minutes (125 minutes). BLOOD LOSS: 20 mL. INDICATION: The patient with marked pain, right much greater than left carpometacarpal joint. Failed injections x2, therapy, brace, and splint, modification of activity, still with pain and drops things, cannot write or type or mouse without pain. She also developed a ganglion and secondary to the CMC problem, has developed hyperlaxity of the MP joint. All will be addressed during the surgery. DESCRIPTION OF PROCEDURE: After the patient had successful block and the arm was prepped and draped, she had general anesthesia with LMA technique. We then exsanguinated the limb and inflated tourniquet to 250 mmHg pressure, made a zigzag incision just radial to the flexor carpi radialis over the mass at the palmar wrist. We carried through skin and subcutaneous tissue, and the whole of the mass lies directly between the two branches of the radial artery. We had to dissect the artery off the mass, lifted up, found the stalk and the stalk led to the volar radioscaphoid joint. It was a bilobed mass. However, there was an area also about 8 mm deep to the retinaculum and the joint, so we had removed this as well, leaving approximately 3 mm hole in the radiocarpal joint. There was no bleeding arterial at this point. We sent the mass to the lab. We then approached the thumb and made a zigzag 2 cm incision just distal to the A1 kurt and carried it down to just proximal to the metacarpophalangeal joint palmarly. I visualized the radial and ulnar digital nerves and retracted them gently from the field. Moved the thumb flexor pollicis longus tendon ulnarly and then saw the joint capsule. We made a V-shaped incision in the capsule and used four Prolenes to perform a [id number] capsulodesis. We pinned the joint at approximately 40 degrees of flexion of the MP and then tied the sutures in a [id number] method. No laxity was seen. We closed this wound with a simple 4-0 nylon interrupted pattern. We now made our J-shaped hockey stick approach to the carpometacarpal joint of the thumb and ended it on the palmar skin at the very edge of the palmar incision for the radiocarpal ganglion. Now, we had one continuous incision. We carried through skin and subcutaneous tissue until we saw the branches of superficial radial nerve, protected them, as well as the branches of the median nerve. We then incised father, saw the junction of the fascia to the thumb metacarpal base and removed the fascia muscle at this point. We split the interval between abductor pollicis longus and extensor, and maintained abductor pollicis longus, identified the capsule, we did a capsulotomy and cleaned up the capsule. We placed a 2.0 wire in the trapezium and verified by x-ray and we prepared to remove it. We identified the flexor carpi radialis within the wrist joint, removed the sheath from the side of trapezium and protected it and then did a complete trapeziectomy using combination of [place] blade and tenotomy scissors with the trapezium being removed without complication. We visualized the flexor carpi radialis. It was intact at the base. She is a female, so it was small. We then drilled a tunnel obliquely from the lateral wall with the thumbnail in the plane of the bed and the drill from 12 mm distal to the base of the thumb metacarpal obliquely in the center in the sagittal plane down to the junction of the chondral surface and bone surface on the ulnar metacarpal base. We then used a 3.5 to make it wider, multiple curettes and it was approximately 4.0 mm hole by this time without fracture or loss of congruity. We irrigated it. We placed a moist dressing here and then returned our attention to forearm, where we made a 2 zigzag incisions, each one 2 cm over the area where we felt we could palpate the flexor carpi radialis when lifting it. We found the musculotendinous junction, it through one incision and dissected it to bring into the 2nd incision. Between the 1st and 2nd incision, we removed all excess muscle and trimmed the tendon. We then brought into the wrist. We trimmed 1 mm of tendon, leaving approximately 80% what was harvested and then brought that through the hole in the bone. We always to maintain tension here, which was done. At this point, the patient had the tendon brought into the wrist. Through the drill holes, we passed the tendon and kept under tension. We did pass only through the hole in the bone at base of the thumb metacarpal. We reduced the metacarpal of the thumb to the index finger and then placed a K-wire here, which held it in place on the multiple views with motion/fluoroscopy. The patient then had the pin cut just under the skin after bringing it out through skin with separate stab wound. With tension on the graft and tunneled deep to the abductor pollicis longus, we were able to suture twice to the wall of the lateral thumb base of metacarpal, twice to the abductor pollicis longus, twice to the proximal base of the metacarpal and once to the deep capsule remnant ulnarly. We then placed a Daniel needle on the 3-0 suture that had been placed in deep capsule earlier in the procedure, and then weaved the remnant of the flexor carpi radialis x10 and then with the sutures still inside, placed it with the tied knot deep into the wound cavity. Tourniquet was deflated by this time, we then closed the capsule with the suture that we tagged it, with 2-0 Vicryl undyed, using same 2-0 Vicryl undyed to repair the fascia over the thenar muscles in interrupted [id number] pattern. We obtained more hemostasis where the radial artery was located from the previous ganglion cystectomy with a combination of clips and electrocautery. Once this was done, we held pressure on the wound for one minute, removed it and there was no bleeding. We then closed the primary incision, which is now connected to the incision by placing a 4-0 Monocryl undyed in all the corners, but we changed direction and then we did a superficial epidermal and dermal closure with 4-0 nylon mattress pattern interrupted. This was done for all remaining wounds on the arm and forearm. Bulky dressing was applied with bacitracin and Adaptic, the thumb was already 45 degrees abducting. The K-wires were cut below the skin, and the patient left the operating room with all incisions closed and block tenous for effect because she was asleep. Job ID: [id number]
[2019-10-10] MEDS ORDERED: Losartan 25 MG TAB PO SCH (09:00)
[2019-10-10] MEDS ORDERED: Hydrochlorothiazide 25 MG TAB PO SCH (09:00)
[2019-10-10] MEDS: Aspirin 81 mg Enteric Coated Tablet PO SCH (09:07)
[2019-10-10] MEDS: Vancomycin HCl 1 GM in Premix Bag 1 BAG IVPB SCH (09:08)
== END 2019-10-10 12:01 | disposition home or self-care (01) ==
LOC: SDC 05:47 → SJJU 10:58
PROVIDERS: ADMIT Orthopaedic Surgery Hand Surgery; ATTEND Orthopaedic Surgery Hand Surgery
PROC: 0LB50ZZ Excision of Right Lower Arm and Wrist Tendon, Open Approach (ICD-10-PCS; principal; 2019-10-10)
DX: M18.11 Unilateral primary osteoarthritis of first carpometacarpal joint, right hand (principal); M67.431 Ganglion, right wrist; I10 Essential (primary) hypertension; E78.00 Pure hypercholesterolemia, unspecified; Z79.899 Other long term (current) drug therapy; Z88.2 Allergy status to sulfonamides; Z88.1 Allergy status to other antibiotic agents
CPT/HCPCS: 76000; 88304; 96365; 96366; 96375; G0378; J0670; J0690; J0702; J1100; J2001; J2250; J2270; J2405; J2550; J2704; J3010; J3370; J3490; S0020

== ENCOUNTER 2021-03-18 15:48 | Outpatient (CLI) | payer OTHER | END 2021-03-18 15:49 | disposition home or self-care (01) | LOC: BICMAMMO 15:48 | PROVIDERS: ATTEND Internal Medicine Hospice and Palliative Medicine | DX: Z12.31 Encounter for screening mammogram for malignant neoplasm of breast (principal) | CPT/HCPCS: 77063; 77067 ==

== ENCOUNTER 2021-12-03 09:00 | Outpatient (CLI) | payer BC | END 2021-12-03 09:01 | disposition home or self-care (01) | LOC: CT 09:00 | PROVIDERS: ATTEND Surgery | DX: K57.92 Diverticulitis of intestine, part unspecified, without perforation or abscess without bleeding (principal); K57.30 Diverticulosis of large intestine without perforation or abscess without bleeding; Z90.710 Acquired absence of both cervix and uterus | CPT/HCPCS: 74177; 82565 ==

== ENCOUNTER 2022-01-25 11:30 | Inpatient (IN) | payer BC, MEDICARE ==
[2022-02-03] MEDS ORDERED: EPINEPHrine 1 MG/ML AMP ONE (09:52)
[2022-02-03] MEDS ORDERED: Bupivacaine 0.25% HCL 30 ML VIAL ONE (09:52)
[2022-02-03] MEDS ORDERED: HYDROmorphone 0.5 MG/0.5 ML SYRINGE ONE (10:06)
[2022-02-03] MEDS ORDERED: Propofol 500 MG/50 ML VIAL ONE (10:07)
[2022-02-03] MEDS ORDERED: fentaNYL Citrate/PF 100 MCG/2 ML SYRINGE ONE (10:07)
[2022-02-03] MEDS ORDERED: Sodium Chloride 0.9% 100 ML ONE (10:13)
[2022-02-03] MEDS ORDERED: cefOXitin 2 GM VIAL ONE (10:13)
[2022-02-03] MEDS ORDERED: Lidocaine 1% MPF 2 ML VIAL ONE (10:13)
[2022-02-03] MEDS ORDERED: Promethazine HCl 25 MG/ML VIAL IVPB PRN (11:09)
[2022-02-03] MEDS ORDERED: HYDROmorphone 2 MG/ML VIAL SLOW IVP PRN (11:09)
[2022-02-03] MEDS ORDERED: Meperidine HCl/PF 25 MG/ML VIAL SLOW IVP PRN (11:09)
[2022-02-03] MEDS ORDERED: Rocuronium Bromide 10 MG/ML (10ML VIAL) ONE (11:26)
[2022-02-03] MEDS ORDERED: Ondansetron PF 4 MG/2 ML Vial ONE (11:26)
[2022-02-03] MEDS ORDERED: PROPOFOL 200 MG/20 ML VIAL ONE (11:26)
[2022-02-03] MEDS ORDERED: Dexamethasone 20 MG/5 ML VIAL ONE (11:26)
[2022-02-03] MEDS ORDERED: Glycopyrrolate 0.2 MG/ML 5 ML SYRINGE ONE (11:26)
[2022-02-03] MEDS ORDERED: Ketorolac Tromethamine 30 MG/ML VIAL ONE (11:26)
[2022-02-03] MEDS ORDERED: Lidocaine 1% PF 5 ML VIAL ONE (11:26)
[2022-02-03] MEDS ORDERED: hydrALAZINE 20 MG/ML VIAL SLOW IVP PRN (13:46)
[2022-02-03] MEDS ORDERED: Fentanyl 100 MCG/2 ML VIAL SLOW IVP PRN (13:46)
[2022-02-03] MEDS ORDERED: Promethazine HCl 25 MG/ML VIAL IM PRN (13:46)
[2022-02-03] MEDS: Fentanyl 100 MCG/2 ML VIAL SLOW IVP PRN ×3 (15:44→23:04)
[2022-02-03] MEDS: D5 1/2 NS w/20 mEq KCL 1,000 ML IV SCH ×2 (15:44→23:08)
[2022-02-03] MEDS: cefOXitin Sodium 1 GM in Sodium Chloride 0.9% 100 ML IVPB SCH (18:48)
[2022-02-03] MEDS: HYDROcodone/Acetaminophen 7.5/325 mg Tablet PO PRN ×2 (18:49→23:04)
[2022-02-03] MEDS: Ondansetron PF 4 MG/2 ML Vial IVP PRN (19:48)
[2022-02-03] MEDS: Famotidine 20 MG TAB PO SCH (21:11)
[2022-02-03] MEDS: Zolpidem Tartrate 5 MG TAB PO PRN (21:11)
[2022-02-03] MEDS: Gabapentin 100 MG CAP PO SCH (21:11)
[2022-02-03] MEDS: Enoxaparin Sodium 40 MG/0.4 ML SYRINGE SC SCH (21:11)
[2022-02-03] MEDS: Famotidine/PF 20 mg/2ml Vial SLOW IVP SCH (21:22)
[2022-02-04] MEDS: cefOXitin Sodium 1 GM in Sodium Chloride 0.9% 100 ML IVPB SCH (02:58)
[2022-02-04 06:03] LABS: #Lymphocytes 0.8 thou/uL (1.20-3.40); #Monocytes 0.9 thou/uL (0.11-0.59); #Neutrophils 10.5 thou/uL (1.40-6.50); %Basophils 0.2 % (0.0-1.0); %Lymphocytes 6.4 % (21.0-51.0); %Monocytes 7.1 % (0.0-10.0); %Neutrophils 86.3 % (42.0-75.0); Hemoglobin 11.7 g/dL (12.0-16.0); Mean Corpuscular HGB CONC 32.1 g/dL (32.0-36.0); Mean Corpuscular Hemoglobin 29.6 pg (27.0-31.0); Mean Corpuscular Volume 92.2 fL (78.0-98.0); Mean Platelet Volume 7.3 fL (7.4-10.4); Platelet Count 204 thou/uL (130-400); RBC Distribution Width 12.2 % (11.5-14.5); Red Blood Cell (RBC) Count 3.96 mill/uL (4.20-5.40); White Blood Cell (WBC) Count 12.2 thou/uL (4.8-10.8)
[2022-02-04] MEDS: HYDROcodone/Acetaminophen 7.5/325 mg Tablet PO PRN ×3 (06:04→18:31)
[2022-02-04 06:26] LABS: Anion Gap 10 mmol/L (10-20); BUN (Urea Nitrogen) 5 mg/dL (9.8-20.1); Calc. Creatinine Clearance 104 mL/min (70-130); Calcium 8.3 mg/dL (7.8-10.44); Carbon Dioxide 24 mmol/L (23-31); Chloride 105 mmol/L (98-107); Estimated GFR 96; Glucose 137 mg/dL (80-115); Potassium 3.4 mmol/L (3.5-5.1); Sodium 136 mmol/L (136-145)
[2022-02-04] MEDS: Hydrochlorothiazide 25 MG TAB PO SCH (08:58)
[2022-02-04] MEDS: Losartan 25 MG TAB PO SCH (08:58)
[2022-02-04] MEDS: Amlodipine 10 MG TAB PO SCH (08:59)
[2022-02-04] MEDS: Famotidine 20 MG TAB PO SCH ×2 (08:59→21:09)
[2022-02-04] MEDS: Famotidine/PF 20 mg/2ml Vial SLOW IVP SCH ×2 (09:00→21:45)
[2022-02-04] MEDS: D5 1/2 NS w/20 mEq KCL 1,000 ML IV SCH (10:27)
[2022-02-04] MEDS: Fentanyl 100 MCG/2 ML VIAL SLOW IVP PRN (20:35)
[2022-02-04] MEDS: Gabapentin 100 MG CAP PO SCH (21:09)
[2022-02-04] MEDS: Zolpidem Tartrate 5 MG TAB PO PRN (21:09)
[2022-02-04] MEDS: Enoxaparin Sodium 40 MG/0.4 ML SYRINGE SC SCH (21:10)
[2022-02-05] MEDS: D5 1/2 NS w/20 mEq KCL 1,000 ML IV SCH ×2 (03:21→13:49)
[2022-02-05 05:58] LABS: Hemoglobin 11.5 g/dL (12.0-16.0)
[2022-02-05] MEDS: Losartan 25 MG TAB PO SCH (09:30)
[2022-02-05] MEDS: Famotidine 20 MG TAB PO SCH ×2 (09:30→20:04)
[2022-02-05] MEDS: Hydrochlorothiazide 25 MG TAB PO SCH (09:30)
[2022-02-05] MEDS: Amlodipine 10 MG TAB PO SCH (09:30)
[2022-02-05] MEDS: Acetaminophen 325 MG TAB PO PRN (09:34)
[2022-02-05] MEDS: HYDROcodone/Acetaminophen 7.5/325 mg Tablet PO PRN ×2 (09:34→15:09)
[2022-02-05] MEDS: Famotidine/PF 20 mg/2ml Vial SLOW IVP SCH ×2 (09:38→20:51)
[2022-02-05] MEDS: Gabapentin 100 MG CAP PO SCH (20:01)
[2022-02-05] MEDS: Ondansetron PF 4 MG/2 ML Vial IVP PRN (20:01)
[2022-02-05] MEDS: Enoxaparin Sodium 40 MG/0.4 ML SYRINGE SC SCH (20:04)
[2022-02-05] MEDS: Zolpidem Tartrate 5 MG TAB PO PRN (20:04)
[2022-02-05] MEDS ORDERED: Promethazine 25 MG TAB PO PRN (20:33)
[2022-02-05] MEDS: Ondansetron ODT 4 MG TAB PO PRN (21:36)
[2022-02-06] MEDS: Acetaminophen 325 MG TAB PO PRN (04:17)
[2022-02-06] MEDS: HYDROcodone/Acetaminophen 7.5/325 mg Tablet PO PRN ×2 (04:17→08:29)
[2022-02-06 05:44] LABS: #Eosinphils 0.6 thou/uL (0.0-0.7); #Lymphocytes 0.7 thou/uL (1.20-3.40); #Monocytes 0.8 thou/uL (0.11-0.59); #Neutrophils 5.4 thou/uL (1.40-6.50); %Basophils 0.5 % (0.0-1.0); %Eosinophils 8.4 % (0.0-10.0); %Lymphocytes 9.6 % (21.0-51.0); %Monocytes 9.9 % (0.0-10.0); %Neutrophils 71.6 % (42.0-75.0); Hemoglobin 11.8 g/dL (12.0-16.0); Mean Corpuscular HGB CONC 33.9 g/dL (32.0-36.0); Mean Corpuscular Volume 91.4 fL (78.0-98.0); Mean Platelet Volume 6.9 fL (7.4-10.4); Platelet Count 222 thou/uL (130-400); RBC Distribution Width 11.9 % (11.5-14.5); White Blood Cell (WBC) Count 7.6 thou/uL (4.8-10.8)
[2022-02-06 05:57] LABS: Anion Gap 13 mmol/L (10-20); BUN (Urea Nitrogen) 5 mg/dL (9.8-20.1); Calc. Creatinine Clearance 111 mL/min (70-130); Calcium 8.6 mg/dL (7.8-10.44); Carbon Dioxide 24 mmol/L (23-31); Chloride 104 mmol/L (98-107); Estimated GFR 97; Glucose 110 mg/dL (80-115); Magnesium 1.9 mg/dL (1.6-2.6); Phosphorus 3.1 mg/dL (2.3-4.7); Potassium 3.1 mmol/L (3.5-5.1); Sodium 138 mmol/L (136-145)
[2022-02-06] MEDS: D5 1/2 NS w/20 mEq KCL 1,000 ML IV SCH (06:48)
[2022-02-06] MEDS: Amlodipine 10 MG TAB PO SCH (08:25)
[2022-02-06] MEDS: Famotidine/PF 20 mg/2ml Vial SLOW IVP SCH (08:27)
[2022-02-06] MEDS: Famotidine 20 MG TAB PO SCH (08:27)
[2022-02-06] MEDS: Hydrochlorothiazide 25 MG TAB PO SCH (08:27)
[2022-02-06] MEDS: Ondansetron ODT 4 MG TAB PO PRN (08:28)
[2022-02-06] MEDS: Losartan 25 MG TAB PO SCH (08:28)
[2022-02-06 10:14] VITALS: BP 115/75; TEMP 98.4
== END 2022-02-06 14:35 | disposition home or self-care (01) | DRG 330 ==
LOC: SURG B 02-03 09:30 → SJJU 02-03 15:50
PROVIDERS: ADMIT Surgery; ATTEND Surgery
PROC: 0DBN4ZZ Excision of Sigmoid Colon, Percutaneous Endoscopic Approach (ICD-10-PCS; principal; 2022-02-03)
DX: K57.32 Diverticulitis of large intestine without perforation or abscess without bleeding (principal); K56.7 Ileus, unspecified; E78.00 Pure hypercholesterolemia, unspecified; Z96.652 Presence of left artificial knee joint; I10 Essential (primary) hypertension; Z20.822 Contact with and (suspected) exposure to COVID-19; Z88.2 Allergy status to sulfonamides; Z88.8 Allergy status to other drugs, medicaments and biological substances; Z79.899 Other long term (current) drug therapy; Z90.49 Acquired absence of other specified parts of digestive tract; Z90.89 Acquired absence of other organs; Z90.711 Acquired absence of uterus with remaining cervical stump; Z82.3 Family history of stroke; Z82.49 Family history of ischemic heart disease and other diseases of the circulatory system; Z80.52 Family history of malignant neoplasm of bladder; Z80.8 Family history of malignant neoplasm of other organs or systems; Z01.818 Encounter for other preprocedural examination
CPT/HCPCS: 36415; 36416; 70450; 80048; 83036; 83735; 84100; 85014; 85018; 85025; 88307; 93005; 93010; A4649; J0171; J0694; J1100; J1170; J1650; J1885; J2405; J2704; J3010; J3480; J3490; Q0162; S0020; U0003; U0005

== ENCOUNTER 2022-02-01 07:47 | Outpatient (CLI) | payer BC, MEDICARE ==
[2022-02-01 08:39] LABS: #Eosinphils 0.3 10x3/uL (0.0-0.5); #Monocytes 0.5 10x3/uL (0.0-1.1); #Neutrophils 3.5 10x3/uL (1.5-8.4); %Basophils 0.7 % (0.0-2.0); %Eosinophils 5.2 % (0.0-6.0); %Lymphocytes 20.4 % (18.0-47.0); %Monocytes 8.9 % (0.0-10.0); %Neutrophils 64.6 % (40.0-75.0); Hemoglobin 14.6 g/dL (12.0-15.5); Mean Corpuscular Hemoglobin 29.6 pg (27.0-33.0); Mean Corpuscular Volume 86.8 fl (81.6-98.3); Mean Platelet Volume 9.4 fl (7.4-10.4); Platelet Count 253 10x3/uL (150-450); RBC Distribution Width 13.4 % (11.5-14.5); Red Blood Cell (RBC) Count 4.94 10x6/uL (3.90-5.03); White Blood Cell (WBC) Count 5.4 10x3/uL (3.5-10.5)
[2022-02-01 09:02] LABS: Anion Gap 13 mmol/L (10-20); BUN (Urea Nitrogen) 12 mg/dL (9.8-20.1); Calc. Creatinine Clearance 0 mL/min (70-130); Calcium 9.7 mg/dL (7.8-10.44); Carbon Dioxide 27 mmol/L (23-31); Chloride 103 mmol/L (98-107); Glucose 100 mg/dL (80-115); Potassium 3.8 mmol/L (3.5-5.1); Sodium 139 mmol/L (136-145)
[2022-02-01 13:12] LABS: Hemoglobin A1c 5.6 % (4.0-6.0)
== END 2022-02-01 07:48 | disposition home or self-care (01) ==
LOC: LABBT 07:47
PROVIDERS: ATTEND Surgery
DX: Z01.818 Encounter for other preprocedural examination (principal); K57.32 Diverticulitis of large intestine without perforation or abscess without bleeding; Z20.822 Contact with and (suspected) exposure to COVID-19
CPT/HCPCS: 80048; 83036; 85025; 93005; 93010; U0003; U0005

== ENCOUNTER 2022-09-20 10:24 | Outpatient (CLI) | payer BC ==
[2022-09-20 11:51] LABS: #Eosinphils 0.4 10x3/uL (0.0-0.5); #Monocytes 0.5 10x3/uL (0.0-1.1); #Neutrophils 3.4 10x3/uL (1.5-8.4); %Basophils 0.7 % (0.0-2.0); %Eosinophils 6.8 % (0.0-6.0); %Lymphocytes 20.3 % (18.0-47.0); Hemoglobin 14.1 g/dL (12.0-15.5); Mean Corpuscular HGB CONC 33.8 g/dL (32.0-36.0); Mean Corpuscular Hemoglobin 29.5 pg (27.0-33.0); Mean Corpuscular Volume 87.2 fl (81.6-98.3); Mean Platelet Volume 9.9 fl (7.4-10.4); Platelet Count 292 10x3/uL (150-450); RBC Distribution Width 13.5 % (11.5-14.5); Red Blood Cell (RBC) Count 4.78 10x6/uL (3.90-5.03); White Blood Cell (WBC) Count 5.4 10x3/uL (3.5-10.5)
[2022-09-20 12:04] LABS: Anion Gap 12 mmol/L (10-20); BUN (Urea Nitrogen) 17 mg/dL (9.8-20.1); Calc. Creatinine Clearance 0 mL/min (70-130); Calcium 9.5 mg/dL (7.8-10.44); Carbon Dioxide 26 mmol/L (23-31); Chloride 107 mmol/L (98-107); Estimated GFR 92; Glucose 95 mg/dL (80-115); Potassium 4.4 mmol/L (3.5-5.1); Prothrombin Time 10.6 sec (9.5-12.1); Sodium 141 mmol/L (136-145)
== END 2022-09-20 10:25 | disposition home or self-care (01) ==
LOC: LABBT 10:24
PROVIDERS: ATTEND Orthopaedic Surgery
DX: Z01.818 Encounter for other preprocedural examination (principal); M17.11 Unilateral primary osteoarthritis, right knee
CPT/HCPCS: 80048; 85025; 85610; 87081; 93005; 93010

== ENCOUNTER 2022-09-21 06:34 | Observation (INO) | payer BC, MEDICARE ==
[2022-09-21] MEDS ORDERED: Midazolam HCl 2 mg/2 ml Vial ONE (08:10)
[2022-09-21] MEDS ORDERED: Fentanyl 100 MCG/2 ML VIAL ONE ×3 (08:10→11:49)
[2022-09-21] MEDS ORDERED: Bupivacaine PF 0.5% 30 ML VIAL ONE ×2 (08:10→14:37)
[2022-09-21] MEDS ORDERED: Vancomycin 1 GM/200 ML (FROZEN) BAG ONE (08:13)
[2022-09-21] MEDS ORDERED: Tranexamic Acid 1,000 MG/10 ML VIAL ONE (08:13)
[2022-09-21] MEDS ORDERED: Sodium Chloride 0.9% 100 ML ONE ×2 (08:13→08:44)
[2022-09-21] MEDS ORDERED: Lidocaine 1% PF 5 ML VIAL ONE (08:23)
[2022-09-21] MEDS ORDERED: Dexamethasone 20 MG/5 ML VIAL ONE (08:23)
[2022-09-21] MEDS ORDERED: Ondansetron PF 4 MG/2 ML Vial ONE (08:23)
[2022-09-21] MEDS ORDERED: PROPOFOL 200 MG/20 ML VIAL ONE (08:23)
[2022-09-21] MEDS ORDERED: Bupivacaine HCl 0.5%/Epinephrine 1:200,000/PF 30 ml Vial ONE (08:35)
[2022-09-21] MEDS ORDERED: fentaNYL PF 100 MCG/2 ML SYRINGE ONE ×2 (08:44→09:37)
[2022-09-21] MEDS ORDERED: CEFAZOLIN 2 GM VIAL ONE (08:44)
[2022-09-21] MEDS ORDERED: Fentanyl 100 MCG/2 ML VIAL SLOW IVP PRN ×2 (08:48→08:55)
[2022-09-21] MEDS ORDERED: Promethazine HCl 25 MG/ML VIAL IM PRN ×2 (08:55→09:00)
[2022-09-21] MEDS ORDERED: diphenhydrAMINE 25 MG CAP PO PRN ×3 (08:55→09:50)
[2022-09-21] MEDS ORDERED: Zolpidem Tartrate 5 MG TAB PO PRN ×3 (08:55→09:58)
[2022-09-21] MEDS ORDERED: Acetaminophen 325 MG TAB PO PRN (08:55)
[2022-09-21] MEDS ORDERED: HYDROcodone/Acetaminophen 10/325 mg Tablet PO PRN ×3 (08:55→09:00)
[2022-09-21] MEDS ORDERED: Ondansetron PF 4 MG/2 ML Vial IVP PRN ×2 (08:55→09:00)
[2022-09-21] MEDS ORDERED: Non-Formulary Item 1 EACH (Zolpidem Tartrate [Ambien] 10 MG Tablet) PO PRN (08:56)
[2022-09-21] MEDS ORDERED: SUMATRIPTAN SUCCINATE 100 MG PO PRN (08:56)
[2022-09-21] MEDS ORDERED: Ondansetron ODT 4 MG TAB PO PRN (08:56)
[2022-09-21] MEDS ORDERED: Benzonatate 100 MG CAP PO PRN (08:56)
[2022-09-21] MEDS ORDERED: CHOLECALCIFEROL 25 MCG PO SCH (09:00)
[2022-09-21] MEDS: Amlodipine 10 MG TAB PO SCH (09:00)
[2022-09-21] MEDS: Multivitamin W/ Minerals 1 TAB PO SCH (09:00)
[2022-09-21] MEDS ORDERED: Non-Formulary Item 1 EACH (Lifitegrast [Xiidra] 1 EACH Droperette) EA EYE SCH (09:00)
[2022-09-21] MEDS ORDERED: traMADol HCl 50 MG TAB PO PRN ×2 (09:00)
[2022-09-21] MEDS ORDERED: Non-Formulary Item 1 EACH (Losartan/Hydrochlorothiazide [Losartan-Hctz 100-12.5 Mg Tab] 1 PO SCH (09:00)
[2022-09-21] MEDS ORDERED: Ropivacaine 0.2% 550 ML 550 ML NERVE BLCK SCH (09:00)
[2022-09-21] MEDS: Ferrous Gluconate 324 MG TAB PO SCH ×2 (09:00→19:55)
[2022-09-21] MEDS: Aspirin 81 mg Enteric Coated Tablet PO SCH ×2 (09:00→19:55)
[2022-09-21] MEDS: Senokot S 8.6-50 MG TAB PO SCH ×2 (09:00→19:55)
[2022-09-21 09:03] LABS: SARS-CoV-2 NAA Rapid Test Not Detected (NotDetected)
[2022-09-21] MEDS ORDERED: SUMAtriptan Succinate 50 MG TAB PO PRN (09:55)
[2022-09-21] MEDS ORDERED: Ketorolac Tromethamine 30 MG/ML VIAL ONE (12:26)
[2022-09-21] MEDS: Ketorolac Tromethamine 30 MG/ML VIAL IVP SCH ×3 (12:28→23:00)
[2022-09-21] MEDS: CEFAZOLIN 2 GM in Sodium Chloride 0.9% 100 ML IVPB SCH ×2 (13:19→19:54)
[2022-09-21] MEDS: HYDROcodone/Acetaminophen 10/325 mg Tablet PO PRN ×3 (13:19→22:19)
[2022-09-21] MEDS: Sodium Chloride 0.9% 1,000 ML IV SCH ×3 (14:43→22:12)
[2022-09-21] MEDS ORDERED: Gabapentin 100 MG CAP PO SCH (21:00)
[2022-09-21] MEDS ORDERED: Rosuvastatin 10 MG TAB PO SCH (21:00)
[2022-09-21] MEDS ORDERED: (Lifitegrast [Xiidra] 1 EACH Droperette) EA EYE SCH (21:00)
[2022-09-22] MEDS: HYDROcodone/Acetaminophen 10/325 mg Tablet PO PRN ×2 (02:15→08:21)
[2022-09-22] MEDS: Ketorolac Tromethamine 30 MG/ML VIAL IVP SCH (05:04)
[2022-09-22 05:25] LABS: Hemoglobin 11.6 g/dL (12.0-16.0); Mean Corpuscular HGB CONC 33.8 g/dL (32.0-36.0); Mean Corpuscular Hemoglobin 30.8 pg (27.0-31.0); Mean Corpuscular Volume 91.2 fl (78.0-98.0); Mean Platelet Volume 7.3 fL (7.4-10.4); Platelet Count 217 10x3/uL (130-400); RBC Distribution Width 12.3 % (11.5-14.5); Red Blood Cell (RBC) Count 3.78 mill/uL (4.20-5.40); White Blood Cell (WBC) Count 9.6 10x3/uL (4.8-10.8)
[2022-09-22] MEDS: Aspirin 81 mg Enteric Coated Tablet PO SCH (08:15)
[2022-09-22] MEDS: Ferrous Gluconate 324 MG TAB PO SCH (08:15)
[2022-09-22] MEDS: Amlodipine 10 MG TAB PO SCH (08:18)
[2022-09-22] MEDS: Senokot S 8.6-50 MG TAB PO SCH (08:18)
[2022-09-22] MEDS: Multivitamin W/ Minerals 1 TAB PO SCH (08:20)
[2022-09-22] MEDS ORDERED: Ascorbic Acid 500 mg Chewable Tablet PO SCH (09:00)
[2022-09-22] MEDS ORDERED: Losartan 25 MG TAB PO SCH (09:00)
[2022-09-22] MEDS ORDERED: Hydrochlorothiazide 25 MG TAB PO SCH (09:00)
[2022-09-22] MEDS ORDERED: Cholecalciferol 1,000 UNITS (25 MCG) TAB PO SCH (09:00)
[2022-09-22 09:05] VITALS: BP 136/74; TEMP 98
== END 2022-09-22 10:24 | disposition home or self-care (01) ==
LOC: SDC 06:34 → SURG B 13:13
PROVIDERS: ADMIT Orthopaedic Surgery; ATTEND Orthopaedic Surgery
PROC: 0SRC0J9 Replacement of Right Knee Joint with Synthetic Substitute, Cemented, Open Approach (ICD-10-PCS; principal; 2022-09-21)
DX: M17.11 Unilateral primary osteoarthritis, right knee (principal); I10 Essential (primary) hypertension; E78.00 Pure hypercholesterolemia, unspecified; Z79.899 Other long term (current) drug therapy; Z88.1 Allergy status to other antibiotic agents; Z88.2 Allergy status to sulfonamides; Z96.652 Presence of left artificial knee joint; Z20.822 Contact with and (suspected) exposure to COVID-19
CPT/HCPCS: 36415; 85027; 96365; 96375; 96376; A4306; C1713; C1776; G0378; J1100; J1885; J2250; J2405; J2704; J2795; J3010; J3370-JW; J3490; S0020; U0002

== ENCOUNTER 2024-01-26 09:32 | Outpatient (CLI) | payer BC | END 2024-01-26 09:33 | disposition home or self-care (01) | LOC: BICMAMMO 09:32 | PROVIDERS: ATTEND Internal Medicine Hospice and Palliative Medicine | DX: Z12.31 Encounter for screening mammogram for malignant neoplasm of breast (principal) | CPT/HCPCS: 77063; 77067 ==